=== PATIENT | male | born 1960 | race African-American/Black ===

== ENCOUNTER 2024-12-31 08:18 | Outpatient (CLI) | payer OTHER ==
--- NOTE | 2024-12-31 10:51 | RADIOLOGY REPORT ---
CT Chest without intravenous contrast INDICATION: LUNG CA SCREENING TECHNIQUE: Multidetector spiral CT of the chest was performed from the lung apices to the upper abdom en. Axial, coronal and sagittal multiplanar reformats were performed. Radiation Dose : 1. Chest: CTDI volume is 50 mGy. Dose-length product is 500 mGy*cm The dose indicators for CT are the volume Computed Tomography (CT) Dose Index (CTDIvol) and the Dose Length Product (DLP), and are measured in units of mGy and mGy-cm, respectively. These indicators are not patient dose, but values generated from the CT scanner acquisition factors. The report includes radiation exposure data for exposures received during this examination. Findings: Lower neck: Unremarkable Lungs: Unremarkable Heart/Vascular Structures: Unremarkable Lymph Nodes: No adenopathy Pleura: Unremarkable Musculoskeletal: Unremarkable Body wall: Unremarkable Upper abdomen: Unremarkable IMPRESSION: No acute abnormality. Lung-RADS Category 1: Continue annual screening with LDCT
== END 2024-12-31 23:59 | disposition home or self-care (01) ==
LOC: RAD 08:18
PROVIDERS: ATTEND Family Medicine
DX: Z12.2 Encounter for screening for malignant neoplasm of respiratory organs (principal)
CPT/HCPCS: 71271